=== PATIENT | female | born 2000 | race Caucasian/White ===

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

== ENCOUNTER 2018-04-26 12:47 | Emergency (ER) | payer OTHER, MEDICAID ==
[2018-04-26 12:51] VITALS: BP 107/60; TEMP 97.7
[2018-04-26] MEDS ORDERED: DEMEROL 50M50 MG/TAB PO (13:03)
[2018-04-26] MEDS ORDERED: ZITHROMAX Z PA250 MG PO (14:13)
[2018-04-26 14:32] VITALS: PULSE 90
== END 2018-04-26 14:33 | disposition home or self-care (01) ==
LOC: COL.ER 12:47
DX: J02.9 Acute pharyngitis, unspecified (principal); F84.0 Autistic disorder
CPT/HCPCS: J1100

== ENCOUNTER 2019-01-08 19:22 | Emergency (ER) | payer OTHER, MEDICAID ==
[~2019-01-08] VITALS: Wt 70.5 kg
[~2019-01-08 19:22] MED LIST changes: +DEMEROL 50M50 MG/TAB PO; +ZITHROMAX Z PA250 MG PO
[2019-01-08 19:34] VITALS: TEMP 97.7
[2019-01-08] MEDS ORDERED: ZYRTEC 10MG10 MG PO (22:08)
[2019-01-08 23:25] VITALS: BP 119/76; PULSE 89
== END 2019-01-08 23:25 | disposition home or self-care (01) ==
LOC: COL.ER 19:22
DX: R51 Headache (principal); F32.9 Major depressive disorder, single episode, unspecified; Z88.0 Allergy status to penicillin; Z90.89 Acquired absence of other organs; Z96.22 Myringotomy tube(s) status

== ENCOUNTER 2021-08-16 13:07 | Outpatient (RCR) | payer OTHER, MEDICAID ==
[~2021-08-16 13:07] MED LIST changes: +ZYRTEC 10MG10 MG PO
== END 2021-08-16 13:41 | disposition home or self-care (01) ==
LOC: MKS.ESL.PT 13:07
DX: M25.512 Pain in left shoulder (principal)